=== PATIENT | male | born 1985 | race Caucasian/White ===

== ENCOUNTER 2017-03-21 07:17 | Emergency (ER) | payer SELFPAY ==
[2017-03-21 10:01] LABS: RED BLOOD COUNT 5.75 M/UL (4.20-5.50); WHITE BLOOD COUNT 10.9 K/UL (4.5-11.0)
[2017-03-21 10:22] LABS: BUN/CREATININE RATIO 11 (0-10)
== END 2017-03-21 14:30 | disposition home or self-care (01) ==
LOC: ER1 07:17
PROVIDERS: Emergency Medicine
DX: R55 Syncope and collapse (principal); S00.31XA Abrasion of nose, initial encounter; I10 Essential (primary) hypertension; F41.9 Anxiety disorder, unspecified; W18.30XA Fall on same level, unspecified, initial encounter; Z79.899 Other long term (current) drug therapy; Z23 Encounter for immunization
CPT/HCPCS: 36415; 70150; 70450; 80053; 80307; 81001; 82550; 82553; 83874; 84484; 85025; 85379; 90471; 90714; 93005; 99284; J7050; Q9963